=== PATIENT | male | born 1940 | race Hispanic/Latino ===

== ENCOUNTER 2018-08-09 11:02 | Day surgery (SDC) | payer MEDICARE ==
[2018-08-09] MEDS ORDERED: NEOFRIN ONE (11:10)
[2018-08-09] MEDS ORDERED: MYDRIACYL ONE (11:12)
[2018-08-09] MEDS ORDERED: IOPIDINE ONE (11:12)
[2018-08-09 11:44] VITALS: BP 110/65
[2018-08-09] MEDS ORDERED: NEOFRIN OD ONE (14:37)
[2018-08-09] MEDS ORDERED: MYDRIACYL OD ONE (14:37)
[2018-08-09] MEDS ORDERED: IOPIDINE OD ONE (14:37)
== END 2018-08-09 11:03 | disposition home or self-care (01) ==
LOC: OR 11:02
PROVIDERS: ATTEND Specialist
DX: H26.491 Other secondary cataract, right eye (principal); K21.9 Gastro-esophageal reflux disease without esophagitis; Z98.41 Cataract extraction status, right eye; Z98.42 Cataract extraction status, left eye; Z87.891 Personal history of nicotine dependence; Z98.890 Other specified postprocedural states